=== PATIENT | female | born 1990 | race Caucasian/White ===

== ENCOUNTER 2016-10-19 19:52 | Emergency (ER) | payer OTHER ==
[~2016-10-19] VITALS: Ht 157.5 cm; Wt 56.5 kg
[2016-10-19] MEDS ORDERED: TYLE325T5 PO (20:27)
[2016-10-19] MEDS ORDERED: NAPR500T PO (20:27)
[2016-10-19] MEDS ORDERED: KETOROLAC 60 MG/2 ML VIAL (J1885) IM ONE (20:30)
[2016-10-19 20:48] VITALS: BP 142/87
[2016-10-19] MEDS ORDERED: ACETAMINOPHEN 325 MG TAB PO ONE (21:00)
[2016-10-19] MEDS ORDERED: diazePAM 2 MG TAB PO ONE (21:00)
== END 2016-10-19 21:03 | disposition home or self-care (01) ==
LOC: M ED 19:52
DX: S13.4XXA Sprain of ligaments of cervical spine, initial encounter (principal); V49.49XA Driver injured in collision with other motor vehicles in traffic accident, initial encounter; Y92.410 Unspecified street and highway as the place of occurrence of the external cause; Y93.89 Activity, other specified; Y99.8 Other external cause status
CPT/HCPCS: 96372; 99282; J1885